=== PATIENT | female | born 1950 | race Caucasian/White ===

== ENCOUNTER → 2017-01-30 | Outpatient (CLI) | payer OTHER ==
[~2017-01-30] MED LIST: CIPRO 500MG TA500 MG PO; FLAGYL 500MG.500 MG PO; FOLIC ACID 1MG T1 MG PO; GLUCOSAMINE CH1 EAC2 PO; HUMIRA40 MG/0.1 SC; HYDROCODONE BIT1 T45 PO; MULTIVITAMIN1 TA1 PO; PLAQUENIL200 MG PO; PREDNISONE5 MG PO; REMICADE 100MG100 MG IJ; SOMA 350MG TAB350 MG PO; ULTRAM50 MG PO; VITAMIN D PO; VITAMIN D1000 IU PO; VIVELLE-DO0.025 MG/2 TD; XELJANZ5 MG PO; ZOLOFT 50MG TAB50 MG PO; Zofran4 MG PO
--- NOTE | 2017-02-03 09:08 | RADIOLOGY REPORT PS360 ---
DIG MAMM-SCREEN IMPLANT W/CAD ORDERING PHYSICIAN : Sam Whitfield MD PATIENT AGE: 66 years GENDER: Female COMPARISON: January HISTORY: No new complaints 66-year-old Postmenopausal female Does taking estrogen. Bilateral breast implants. TECHNIQUE: Shireen technique utilized. CC & MLO images were obtained of the breast tissue overlying implant, as well as a second set of images including the breast implant. Mammography is inherently limited due to the implants is a could obscure areas of breast R2 CAD reviewed. FINDINGS: Moderate breast density for age. Actually the remaining parenchyma slightly less dense today than on 2013 study. No dominant mass. No suspicious calcination no architectural distortion. RIGHT BREAST: No significant new findings. An intramammary lymph node the deep axillary right breast is again observed and appear stable. LEFT BREAST: No significant new findings. Again stable lymph node at the deep axillary left breast. Small areas of density inferior left breast overlying the implant appear similar to previous studies. Would encourage ongoing annual follow-up particularly with patient on estrogen supplement... . IMPRESSION: No significant new areas of concern. Bilateral follow-up in one year recommended . Bilateral breast implants again noted and inherently limit mammography but no significant change. Stable mild asymmetry. Moderately dense breast tissue for age which likely in part reflect exogenous estrogen., BI-RADS CATEGORY: 2_Benign RECOMMENDED FOLLOWUP: 12M 12 MONTH FOLLOW-UP (A letter has been sent to the patient regarding results of the study.)
== END ==
LOC: RAD 16:24
DX: Z12.31 Encounter for screening mammogram for malignant neoplasm of breast (principal)
CPT/HCPCS: G0202